=== PATIENT | female | born 1995 ===

== ENCOUNTER 2017-05-31 13:40 | Inpatient (IN) | payer OTHER ==
[~2017-05-31] VITALS: Ht 154.9 cm; Wt 95.7 kg
[2017-05-31 14:31] VITALS: BP 131/73
[2017-05-31] MEDS ORDERED: PRENATAL TABLE1 EAC2 PO (14:57)
[2017-05-31 15:43] LABS: ABSOLUTE BASOPHIL COUNT 0 /CUMM (0.0-0.2); ABSOLUTE EOSINOPHIL COUNT 0.1 /CUMM (0.0-0.7); ABSOLUTE GRANULOCYTE CT 11.3 /CUMM (1.4-6.5); ABSOLUTE LYMPH COUNT 1.5 /CUMM (1.2-3.4); ABSOLUTE MONOCYTE COUNT 0.6 /CUMM (0.10-0.60); BASOPHIL % 0.2 % (0.0-2.0); EOSINOPHIL % 0.6 % (0-5); GRANULOCYTE % 83.3 % (42.2-75.2); HEMATOCRIT 35.5 % (37-47); MEAN CORPUSCULAR HGB 27.6 PG (27.0-31.0); MEAN CORPUSCULAR HGB CONC 33.2 G/DL (33.0-37.0); MEAN CORPUSCULAR VOLUME 83.3 FL (81.0-99.0); MEAN PLATELET VOLUME 9.7 FL (7.4-10.4); PLATELET COUNT 235 /CUMM (130-400); RBC DISTRIBUTION WIDTH 13.6 % (11.5-14.5); RED BLOOD CELL CT 4.26 /CUMM (4.20-5.40); WHITE BLOOD CELL COUNT 13.6 /CUMM (4.8-10.8)
--- NOTE | 2017-05-31 20:07 | History & Physical ---
General Information and HPI MD Statement: I have seen and personally examined CHRISTINE SMALL and documented this H&P. The patient is a 21 year old female at 37 weeks and 2 days gestation who presented with a chief complaint of rom clear fluid and contractions. Source of Information: patient, old records Exam Limitations: no limitations History of Present Illness: Pt well known to our practice with rom clear and in active labor 4cm pt had mildly elevated Bp PIH labs now normal except for uric acid at 6.3 normal up to 6.2. pt has probable marginal cord incertion with adequate interval growth. 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 Denies: chills, fever. EENTM: Denies: blurred vision, double vision, visual changes. Cardiovascular: Denies: chest pain. Respiratory: Denies: short of breath. GI: Denies: diarrhea, nausea, vomiting. Neurological/Psychological: Denies: anxiety, depressed. Exam & Diagnostic Data Last 24 Hrs of Vital Signs/I&O bp mildly evevated Vital Signs Date Time Temp Pulse Resp B/P B/P Pulse O2 O2 Flow FiO2 Mean Ox Delivery Rate 05/31 1431 131/73 Intake & Output 05/31 1600 05/31 0800 05/31 0000 Intake Total Output Total Balance Patient 211 lb Weight Obstetric Exam Wgt Gained During : 28 lbs Pelvimetry: seems adequate Dilation (cm): 4 Effacement (%): 50 Station: -2 Membranes: SROM Fluid: clear Fundal Height (cm): 36 Multiple Gestation? No Contractions: Q3-4 min Infant #1 - FHR Baseline: 135 Category: 1 Estimated Weight: 3500g Presentation: vtx Patient for Induction? No Physical Exam General Appearance Alert, Oriented X3, Mild Distress Skin No Rashes HEENT Atraumatic Neck Supple Cardiovascular Regular Rate Lungs Clear to Auscultation Abdomen Soft Neurological Normal Speech Labs Blood Type & Rh: A pos Antibody Screen: neg Hct/Hgb & Platelets #1: 36.8/11.6/290 Hct/Hgb & Platelets #2: 33.5/10.4/255 Rubella: imm VDRL #1: nr VDRL #2: nr HbsAg: neg HIV #1: nr HIV #2 nr 1 Hr P Group B Strep: neg Initial Ultrasound: 12/07/2016 Anatomy Ultrasound: 02/09/17 Ultrasound for EFW: 05/17/17/ %tile Genetic Testing: cf neg nt wnl counsyl negative Last 24 Hrs of Labs/William: Laboratory Tests 05/31/17 1446: Estimated GFR > 60, Uric Acid 6.3 H, AST 31, ALT 35, Lactate Dehydrogenase 630 H, CBC w Diff NO MAN DIFF REQ, RBC 4.26, MCV 83.3, MCH 27.6, MCHC 33.2, RDW 13.6 , MPV 9.7, Gran % 83.3 H, Lymphocytes % 11.3 L, Monocytes % 4.6, Eosinophils % 0.6, Basophils % 0.2, Absolute Granulocytes 11.3 H, Absolute Lymphocytes 1.5, Absolute Monocytes 0.6, Absolute Eosinophils 0.1, Absolute Basophils 0 05/31/17 1400: Membrane Rupture POSITIVE 05/31/17 1355: Urine Color YEL, Urine Clarity CLEAR, Urine pH 6.0, Ur Specific [place] >= 1.030 , Urine Protein 100 H, Urine Ketones NEG, Urine Nitrite NEG, Urine Bilirubin NEG@ICTO, Urine Urobilinogen 0.2, Ur Leukocyte Esterase NEG, Ur Microscopic SEDIMENT EXAMINED, Urine RBC 10-15 H, Urine WBC RARE, Ur Epithelial Cells FEW, Urine Mucus FEW, Urine Hemoglobin SMALL H, Urine Glucose NEG Microbiology 05/31 1355 URINE ROUT: Urine Culture - RECD Assessment/Plan Assessment/Plan: iup at 37 weeks active labor srom marginal cord incertion associated hypertension As Ranked By This Provider Problem List: 1. Normal labor Core Measures Venous Thromboembolism VTE Risk Factors / No Mechanical VTE Prophylaxis d/t LowRisk-No Interven Req'd No VTE Pharm Prophylaxis d/t LowRisk-No Interven Req'd Attending MD Review Statement Attending Statement Attending MD Statement: examined this patient, discussed with family, discussed w/nursing
--- NOTE | 2017-05-31 21:46 | PN- OBGYN ---
Surgical Brief Attending Note Brief Attending Note: pt requested epidural which was placed with spotty coverage progressed to fully dilated soon after.
--- NOTE | 2017-05-31 21:48 | Labor & Delivery Summary ---
Delivery Summary Vaginal Delivery: Vaginal: vertex Episiotomy/Lacerations: Episiotomy/Lacerations: none Placenta: Placenta: spontanteous, normal, 3 vessel Anesthesia: block Baby's Weight: 4# 11 oz Apgars - 1 Min: 9 Apgars - 5 Min: 9 Additional Comments: became fully dilated and pushed for 15 minutes delivered OR female over intact perinum through clear fluid placenta mot marginal incertion followed intact good hemostasis with iv pitocin.
[2017-06-01 07:56] LABS: ABSOLUTE BASOPHIL COUNT 0.1 /CUMM (0.0-0.2); ABSOLUTE EOSINOPHIL COUNT 0 /CUMM (0.0-0.7); ABSOLUTE GRANULOCYTE CT 15.1 /CUMM (1.4-6.5); ABSOLUTE LYMPH COUNT 1.5 /CUMM (1.2-3.4); ABSOLUTE MONOCYTE COUNT 0.9 /CUMM (0.10-0.60); BASOPHIL % 0.4 % (0.0-2.0); EOSINOPHIL % 0 % (0-5); HEMATOCRIT 32.6 % (37-47); MEAN CORPUSCULAR HGB 28.1 PG (27.0-31.0); MEAN CORPUSCULAR HGB CONC 33.5 G/DL (33.0-37.0); MEAN CORPUSCULAR VOLUME 83.8 FL (81.0-99.0); MEAN PLATELET VOLUME 10.3 FL (7.4-10.4); PLATELET COUNT 229 /CUMM (130-400); RBC DISTRIBUTION WIDTH 13.4 % (11.5-14.5); RED BLOOD CELL CT 3.89 /CUMM (4.20-5.40); WHITE BLOOD CELL COUNT 17.5 /CUMM (4.8-10.8)
--- NOTE | 2017-06-01 11:01 | PN- Post Delivery/GYN ---
Subjective Subjective: feeling well Review of Systems Constitutional: Reports: no symptoms. Denies: chills, fever. EENTM: Denies: blurred vision, double vision, visual changes. Cardiovascular: Denies: chest pain, edema. Respiratory: Denies: cough, short of breath. Gastrointestinal: Denies: diarrhea, nausea, vomiting. Neurological/Psychological: Denies: anxiety, depressed. Objective Last 24 Hrs of Vital Signs/I&O mildly elevated bp 148/86 Vital Signs Date Time Temp Pulse Resp B/P B/P Pulse O2 O2 Flow FiO2 Mean Ox Delivery Rate 05/31 1431 131/73 Physical Exam General Appearance Alert, Oriented X3, Cooperative, No Acute Distress Cardiovascular Regular Rate Lungs Clear to Auscultation Abdomen Soft, No Tenderness, fundus firm Neurological Normal Gait, Normal Speech, Strength at 5/5 X4 Ext, Normal Tone Pelvic (FEMALE) lochia serosanganous Current Medications: Current Medications Sig/Anu Start time Last Medication Dose Route Stop Time Status Admin Acetaminophen 650 MG Q4P PRN 05/31 2199 AC PO Chloroprocaine HCl 30 ML ONCE ONE 05/31 2199 DC 05/31 SC 05/31 Hydroxyzine HCl 50 MG AT BEDTIME NEED.. 05/31 220 AC PO Ibuprofen 800 MG Q6P PRN 05/31 220 AC 06/01 PO 0842 Lactated Ringer's 1,000 ML Q8H 05/31 1430 DC 05/31 IV 2000 Magnesium Hydroxide 30 ML DAILY PRN 05/31 220 AC PO Oxytocin 20 UNITS Q5H 05/31 220 DC 05/31 Lactated Ringer's 1,000 ML IV 06/01 0259 2135 Last 24 Hrs of Labs/William: Laboratory Tests 06/01/17 0623: CBC w Diff NO MAN DIFF REQ, RBC 3.89 L, MCV 83.8, MCH 28.1, MCHC 33.5, RDW 13.4 , MPV 10.3, Gran % 86.0 H, Lymphocytes % 8.6 L, Monocytes % 5.0, Eosinophils % 0, Basophils % 0.4, Absolute Granulocytes 15.1 H, Absolute Lymphocytes 1.5, Absolute Monocytes 0.9 H, Absolute Eosinophils 0, Absolute Basophils 0.1 05/31/17 1446: Estimated GFR > 60, Uric Acid 6.3 H, AST 31, ALT 35, Lactate Dehydrogenase 630 H, CBC w Diff NO MAN DIFF REQ, RBC 4.26, MCV 83.3, MCH 27.6, MCHC 33.2, RDW 13.6 , MPV 9.7, Gran % 83.3 H, Lymphocytes % 11.3 L, Monocytes % 4.6, Eosinophils % 0.6, Basophils % 0.2, Absolute Granulocytes 11.3 H, Absolute Lymphocytes 1.5, Absolute Monocytes 0.6, Absolute Eosinophils 0.1, Absolute Basophils 0 05/31/17 1400: Membrane Rupture POSITIVE 05/31/17 1355: Urine Color YEL, Urine Clarity CLEAR, Urine pH 6.0, Ur Specific [place] >= 1.030 , Urine Protein 100 H, Urine Ketones NEG, Urine Nitrite NEG, Urine Bilirubin NEG@ICTO, Urine Urobilinogen 0.2, Ur Leukocyte Esterase NEG, Ur Microscopic SEDIMENT EXAMINED, Urine RBC 10-15 H, Urine WBC RARE, Ur Epithelial Cells FEW, Urine Mucus FEW, Urine Hemoglobin SMALL H, Urine Glucose NEG Microbiology 05/31 2100 URINE ROUT: Urine Culture - RES 05/31 1355 URINE ROUT: Urine Culture - RES Assessment/Plan Assessment/Plan ppd #1 mildly elevated Bp asymptomatic plan d/c home in am
[2017-06-02] MEDS ORDERED: IBUPROFEN800 M1 PO (08:52)
--- NOTE | 2017-06-02 08:57 | PN- OBGYN ---
Surgical Brief Attending Note Brief Attending Note: PPD#2 pt is resting in bed, no complaints. tolerate diet, void without difficulties, ambulating well. PE: VSS CV RRR Lungs CTA B/L Abdomen: soft, nontender, uterus firm, fundus below umbilicus. lochia mild Ext: DCT (-) A/P: 21 yo, s/p , PPD#2 1. encourage ambulation. 2. RT PP Care 3. will d/c home, f/u in office in 2 wks and 6 wks. discharge instructions given.
== END 2017-06-02 12:00 | DRG 560 ==
LOC: CBCO 13:40 → GNO 14:20
PROVIDERS: Obstetrics & Gynecology
PROC: 10E0XZZ Delivery of Products of Conception, External Approach (ICD-10-PCS; principal; 2017-05-31)
DX: O13.4 Gestational [pregnancy-induced] hypertension without significant proteinuria, complicating childbirth (principal); Z3A.37 37 weeks gestation of pregnancy; Z37.0 Single live birth
CPT/HCPCS: GNOP; GNOS; 36415; 81001; 84112; 87086; J7120